=== PATIENT | male | born 1980 | race Caucasian/White ===

== ENCOUNTER 2017-06-29 18:26 | Emergency (ER) | payer OTHER ==
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
== END 2017-06-29 20:03 | disposition home or self-care (01) ==
LOC: ED 18:26
DX: M54.2 Cervicalgia (principal); Y09 Assault by unspecified means
CPT/HCPCS: 70490; 99282

== ENCOUNTER 2018-11-02 10:15 | Emergency (ER) | payer BC, OTHER ==
[2018-11-02] MEDS ORDERED: Ketorolac INJ* 30 MG/ML 1 ML VIAL IM ONE (11:55)
[2018-11-02 12:07] VITALS: BP 112/70
--- NOTE | 2018-11-03 08:12 | ED ---
Throat Pain/Nasal Congestion - HPI Summary HPI Summary: Patient is a 37-year-old male who present with worsening dental pain times several weeks. Patient states he has an appointment with an oral surgeon at the end of November to have tooth pulled. Patient states he is on day 7 of 10 day course of penicillin but he feels pain is getting worse. He denies fever, chills, facial swelling or vomiting. No significant past medical hx. Sxs are mild in severity. Pt. taking motrin without relief. - History of Current Complaint Chief Complaint: EDDentalPain Time Seen by Provider: 11/02/18 11:13 Hx Obtained From: Patient - Allergies/Home Medications Allergies/Adverse Reactions: Allergies Allergy/AdvReac Type Severity Reaction Status Date / Time No Known Allergies Allergy Verified 06/29/17 18:41 PMH/Surg Hx/FS Hx/Imm Hx Previously Healthy: Yes Endocrine/Hematology History: Denies: Hx Anticoagulant Therapy Cardiovascular History: Denies: Hx Myocardial Infarction Infectious Disease History: No Infectious Disease History: Denies: Traveled Outside the [place] in Last 30 Days - Family History Known Family History: Positive: Hypertension, Non-Contributory - Social History Occupation: Unemployed Lives: Alone Alcohol Use: Occasionally Substance Use Type: Reports: None Smoking Status (MU): Current Every Day Smoker Review of Systems Constitutional: Negative Negative: Fever, Chills ENT: Negative Positive: Dental Pain Gastrointestinal: Negative Negative: Vomiting, Nausea All Other Systems Reviewed And Are Negative: Yes Physical Exam Triage Information Reviewed: Yes Vital Signs On Initial Exam: Initial Vitals Temp Pulse Resp BP Pulse Ox 97.4 F 82 18 128/71 96 11/02/18 10:22 11/02/18 10:22 11/02/18 10:22 11/02/18 10:22 11/02/18 10:22 Vital Signs Reviewed: Yes Appearance: Positive: Well-Appearing - Pt. sitting on bed in NAD. Skin: Positive: Warm, Dry Head/Face: Positive: Normal Head/Face Inspection Eyes: Positive: Normal, EOMI Dental: Positive: Other - Poor dentition throughout. Fracute to left top canine tooth. Gums are erythematous. No drainable abscess. No submandibular edema. No trismus. Neck: Positive: Supple, Nontender Neurological: Positive: Normal, CN Intact II-III Psychiatric: Positive: Affect/Mood Appropriate Diagnostics - Vital Signs Vital Signs Temp Pulse Resp BP Pulse Ox 11/02/18 12:07 98.9 F 67 16 112/70 95 11/02/18 10:22 97.4 F 82 18 128/71 96 - Laboratory Lab Statement: Any lab studies that have been ordered have been reviewed, and results considered in the medical decision making process. EENT Course/Dx - Course Course Of Treatment: Pt. presenting with worsening dental pain. No drainable abscess. Afebrile. Will switch to clinda. Pt. given a dose of toradol in ED. To [facility] his dentist today to try for a sooner apt. WIll return to ER if sxs change or worsen. - Differential Diagnoses Differential Diagnoses: Dental Abscess, Dental Caries, Periodontic Abscess - Diagnoses Provider Diagnoses: Dentalgia Discharge - Sign-Out/Discharge Documenting (check all that apply): Patient Departure Patient Received Moderate/Deep Sedation with Procedure: No - Discharge Plan Condition: Good Disposition: HOME Prescriptions: Clindamycin HCl 300 mg PO QID #40 capsule Naproxen 500 mg PO BID PRN #20 tablet PRN Reason: Pain - Mild Patient Education Materials: Toothache (ED) Referrals: [facility] [Outside] Additional Instructions: Call your dentist today for a sooner appointment Take medication as directed Return to ER if symptoms change or worsen - Billing Disposition and Condition Condition: GOOD Disposition: Home
== END 2018-11-02 12:07 | disposition home or self-care (01) ==
LOC: ED 10:15
DX: K08.89 Other specified disorders of teeth and supporting structures (principal); F17.210 Nicotine dependence, cigarettes, uncomplicated
CPT/HCPCS: 96372; 99282; J1885